=== PATIENT | female | born 1995 | race Caucasian/White ===

== ENCOUNTER 2016-07-08 10:44 | Emergency (ER) | payer OTHER ==
--- NOTE | 2016-07-08 12:13 | ED ORDER SUMMARY ---
..... Patient: KARL DEAL OrderSheet [facility] VisitID: [id number] [address] [place] [address] 20y, F Registration Date/Time: 07/08/2016 ORDER SHEET Weight: 124.7 kg (stated) Allergies: No Known Drug Allergy GENERAL ORDERS: Soft Tissue Neck Urgent (11:09 07/08/2016 Shirlene BARRAGAN) (Ack 11:11 LTapper) (12:14 Erika CardonaNRonit) MEDICATION ORDERS: IV FLUIDS: ORDER SHEET NOTES: [Electronically signed by Jennifer Hennessy R.N. (12:25 07/08/2016)] [Electronically signed by Fernando John MD (13:40 07/08/2016)] [Electronically locked/signed by Jennifer Hennessy R.N. (12:25 07/08/2016)]
--- NOTE | 2016-07-08 12:13 | ED NURSING NOTES ---
Clinical Report - Nurses [facility] [address] [place] [address] 07/08/2016 10:47 Patient: KARL DEAL TRIAGE Triage time 10:54. Acuity: LEVEL 3. Chief Complaint: EAR PAIN, NAUSEA and NECK PAIN. Alert. No acute distress. ANSELMO COMA SCORE: Anselmo Coma Scale: 15- eyes open spontaneously (4); best verbal response- oriented x 4 (5); best motor response- obeys commands (6). --10:59 Jennifer Hennessy R.N. 11:00 07/08/16. BP: 148/91. HR: 101. RR: 18. O2 saturation: 100%. Temp: 98.3 F. Pain level now: 11/01. --11:02 Jennifer Hennessy R.N. Weight: 124.7 kg stated. Height/Length: 66 inches Per Patient. BMI: 44.4. --10:59 Jennifer Hennessy R.N. Medications Abilify Oral. BuPROPion HCl Oral. CeleXA Oral. Citalopram Hydrobromide Oral. LamoTRIgine Oral. [place] Oral. QUEtiapine Fumarate Oral. --10:57 Jennifer Hennessy R.N. Medication/allergy information source: the patient. --10:59 Jennifer Hennessy R.N. Allergies No Known Drug Allergy. --10:57 Jennifer Hennessy R.N. History Arrived by private vehicle. Historian: patient. Unaccompanied. Primary physician (Bruno). Onset. (about 4 days). She has had a sore throat. PAST MEDICAL HX: Last normal menstrual period- June 2016. SOCIAL HX: Smoker- current status unknown (no). Occasional alcohol use. History of drug use: marijuana. FALL RISK ASSESSMENT: Fall risk assessment completed. No fall risk identified. FUNCTIONAL ASSESSMENT: Functional assessment: no impairments noted. LEARNING NEEDS ASSESSMENT: The learning needs assessment revealed no barriers. --10:59 Gerhard, Jennifer, R.N. PROBLEMS: Bipolar Disorder. Anxiety Reaction. Suicidal Ideation. Depression. --10:58 Jennifer Hennessy R.N. ADDITIONAL SURGERIES: Adenoidectomy. Tonsillectomy. Tympanostomy Tubes. --10:58 Jennifer Hennessy R.N. Assessment GENERAL / NEURO / PSYCH: Alert. Oriented X 4. Appears in no acute distress. Patient appears calm and cooperative. RESPIRATORY: Respirations not labored. SKIN: Skin is warm and dry. --10:59 Jennifer Hennessy R.N. Interventions ID band on patient. To treatment room. --10:59 Jennifer Hennessy R.N. PHYSICAL ASSESSMENT 11:04 07/08/16. Ambulatory to room. GENERAL / NEURO / PSYCH: Alert. Oriented X 4. Appears in no acute distress. RESPIRATORY: Respirations not labored. SKIN: Skin is warm and dry. --11:04 Jennifer Hennessy R.N. NURSING PROGRESS NOTES 11:04 07/08/16. Head of bed elevated. Call light placed in reach. Side rails up x 1. Bed placed in lowest position. Brakes of bed on. --11:04 Jennifer Hennessy R.N. 12:15. Overall patient status is the same- she states feels the same. RESPIRATORY: No respiratory distress. SKIN: Skin is warm and dry. --12:25 Jennifer Hennessy R.N. DISPOSITION / DISCHARGE Departure time: 1215. Condition at departure: stable. No learning barriers present. Reviewed medication(s). Prescription(s) given to the patient. Patient verbalized understanding. Written instructions provided in Indonesian. The patient was discharged home and unaccompanied at time of discharge. She left the Emergency Department via private vehicle. FALL RISK ASSESSMENT: Fall risk assessment completed. No fall risk identified. --12:24 Jennifer Hennessy R.N. 12:15 07/08/16. BP: 137/86. HR: 98. RR: 18. O2 saturation: 100% on room air. Pain level now: 01/02. --12:24 Jennifer Hennessy R.N. Locked/Released at 07/08/2016 12:25 by Jennifer Hennessy R.N.
--- NOTE | 2016-07-08 12:13 | ED NURSING NOTES ---
Clinical Report - Nurses [facility] [address] [place] [address] 07/08/2016 10:47 Patient: KARL DEAL TRIAGE Triage time 10:54. Acuity: LEVEL 3. Chief Complaint: EAR PAIN, NAUSEA and NECK PAIN. Alert. No acute distress. ANSELMO COMA SCORE: Anselmo Coma Scale: 15- eyes open spontaneously (4); best verbal response- oriented x 4 (5); best motor response- obeys commands (6). --10:59 Jennifer Hennessy R.N. 11:00 07/08/16. BP: 148/91. HR: 101. RR: 18. O2 saturation: 100%. Temp: 98.3 F. Pain level now: 11/01. --11:02 Jennifer Hennessy R.N. Weight: 124.7 kg stated. Height/Length: 66 inches Per Patient. BMI: 44.4. --10:59 Jennifer Hennessy R.N. Medications Abilify Oral. BuPROPion HCl Oral. CeleXA Oral. Citalopram Hydrobromide Oral. LamoTRIgine Oral. [place] Oral. QUEtiapine Fumarate Oral. --10:57 Jennifer Hennessy R.N. Medication/allergy information source: the patient. --10:59 Jennifer Hennessy R.N. Allergies No Known Drug Allergy. --10:57 Jennifer Hennessy R.N. History Arrived by private vehicle. Historian: patient. Unaccompanied. Primary physician (Bruno). Onset. (about 4 days). She has had a sore throat. PAST MEDICAL HX: Last normal menstrual period- June 2016. SOCIAL HX: Smoker- current status unknown (no). Occasional alcohol use. History of drug use: marijuana. FALL RISK ASSESSMENT: Fall risk assessment completed. No fall risk identified. FUNCTIONAL ASSESSMENT: Functional assessment: no impairments noted. LEARNING NEEDS ASSESSMENT: The learning needs assessment revealed no barriers. --10:59 Gerhard, Jennifer, R.N. PROBLEMS: Bipolar Disorder. Anxiety Reaction. Suicidal Ideation. Depression. --10:58 Jennifer Hennessy R.N. ADDITIONAL SURGERIES: Adenoidectomy. Tonsillectomy. Tympanostomy Tubes. --10:58 Jennifer Hennessy R.N. Assessment GENERAL / NEURO / PSYCH: Alert. Oriented X 4. Appears in no acute distress. Patient appears calm and cooperative. RESPIRATORY: Respirations not labored. SKIN: Skin is warm and dry. --10:59 Jennifer Hennessy R.N. Interventions ID band on patient. To treatment room. --10:59 Jennifer Hennessy R.N. PHYSICAL ASSESSMENT 11:04 07/08/16. Ambulatory to room. GENERAL / NEURO / PSYCH: Alert. Oriented X 4. Appears in no acute distress. RESPIRATORY: Respirations not labored. SKIN: Skin is warm and dry. --11:04 Jennifer Hennessy R.N. NURSING PROGRESS NOTES 11:04 07/08/16. Head of bed elevated. Call light placed in reach. Side rails up x 1. Bed placed in lowest position. Brakes of bed on. --11:04 Jennifer Hennessy R.N. 12:15. Overall patient status is the same- she states feels the same. RESPIRATORY: No respiratory distress. SKIN: Skin is warm and dry. --12:25 Jennifer Hennessy R.N. DISPOSITION / DISCHARGE Departure time: 1215. Condition at departure: stable. No learning barriers present. Reviewed medication(s). Prescription(s) given to the patient. Patient verbalized understanding. Written instructions provided in Welsh. The patient was discharged home and unaccompanied at time of discharge. She left the Emergency Department via private vehicle. FALL RISK ASSESSMENT: Fall risk assessment completed. No fall risk identified. --12:24 Jennifer Hennessy R.N. 12:15 07/08/16. BP: 137/86. HR: 98. RR: 18. O2 saturation: 100% on room air. Pain level now: 01/02. --12:24 Jennifer Hennessy R.N. Locked/Released at 07/08/2016 12:25 by Jennifer Hennessy R.N.
--- NOTE | 2016-07-08 12:13 | ED CLINICAL REPORT ---
Clinical Report - Physicians/Mid Levels [facility] [address] [place] [address] 07/08/2016 10:47 Patient: KARL DEAL Time Seen: 10:52 Jul 08 2016. Arrived- By private vehicle. Historian- patient. CPT: ER phys charges level 3 (#205328). HISTORY OF PRESENT ILLNESS Chief Complaint: NECK PAIN. It is described as being in the area of the cervical spine. The quality is noted to be aching and "pain". 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 She has had a sore throat. and it is still present. No bladder dysfunction, bowel dysfunction, sensory loss or motor loss. Patient denies an injury. No other injury. Similar symptoms previously: None. Evaluation/treatment- strep and mono spot negative. Recent medical care: The patient was seen recently at another facility in a clinic (yesterday). Diagnosis: (Viral URI). REVIEW OF SYSTEMS The patient has had fever and a sore throat. No chills, eye discomfort, headache, depression or cough. No difficulty breathing, chest pain, skin rash, abdominal pain or nausea. No vomiting, diarrhea, black stools, difficulty with urination or urinary frequency. All systems otherwise negative, except as recorded above. PAST HISTORY Bipolar Disorder. Anxiety Reaction. Suicidal Ideation. Depression. ADDITIONAL SURGERIES: Adenoidectomy. Tonsillectomy. Tympanostomy Tubes. Medications: Abilify Oral. BuPROPion HCl Oral. CeleXA Oral. Citalopram Hydrobromide Oral. LamoTRIgine Oral. [place] Oral. QUEtiapine Fumarate Oral. Allergies: No Known Drug Allergy. SOCIAL HISTORY Never smoker. Alcohol use. History of drug use: marijuana. ADDITIONAL NOTES The nursing notes have been reviewed. PHYSICAL EXAM Vital Signs: 07/08/2016 11:00 BP: 148/91. HR: 101. RR: 18. O2 saturation: 100%. Temp: 98.3 F. Pain level now: 7/10. Appearance: Alert. No acute distress. Anxious. HEENT: Normal external inspection. Eyes: Pupils equal, round and reactive to light. ENT: Ears normal. Pharyngeal erythema. No tonsillar exudate. Neck: Normal inspection. Neck nontender. No decreased ROM in the neck. Painless ROM. Mild soft tissue tenderness in the right lower neck area and left lower neck area. No lymphadenopathy or meningeal signs. CVS: Normal heart rate and rhythm. Heart sounds normal. Pulses normal. Respiratory: No respiratory distress. Breath sounds normal. Chest nontender. Abdomen: Normal inspection. Soft and nontender. Back: Normal inspection. No tenderness. Painless ROM. Skin: Skin warm. Normal skin color. No rash. Extremities: Extremities nontender. Neuro: Oriented X 3. Mood/affect normal. No motor deficit. No sensory deficit. Reflexes normal. LABS, X-RAYS, AND EKG X-Rays: Soft tissue neck negative. PROGRESS AND PROCEDURES Patient/family counseled. Disposition: Discharged. Condition: stable. CLINICAL IMPRESSION Acute streptococcal pharyngitis (progressive). INSTRUCTIONS Warnings: GENERAL WARNINGS: Return or contact your physician immediately if your condition worsens or changes unexpectedly, if not improving as expected, or if other problems arise. Your Current Medications: CONTINUE TAKING THE FOLLOWING MEDICATIONS: Abilify Oral. BuPROPion HCl Oral. CeleXA Oral. Citalopram Hydrobromide Oral. LamoTRIgine Oral. [place] Oral. QUEtiapine Fumarate Oral. Prescription Medications: Hydrocodone / APAP Liquid 7.5mg/325mg/15 mL: take ten (10) mL orally every 6 hours as needed for pain. Dispense one hundred (100) mL. No refill. Amoxicillin 500 mg tablets: Take 1 orally every 8 hours for 7 days. Dispense twenty-one (21). No refills. Follow-up: Return to the emergency department If worse. Follow up with your doctor in two days if not better. Understanding of the discharge instructions verbalized by patient. (Electronically signed by Fernando John MD 07/08/2016 13:40)
--- NOTE | 2016-07-08 12:13 | ED CLINICAL REPORT ---
Clinical Report - Physicians/Mid Levels [facility] [address] [place] [address] 07/08/2016 10:47 Patient: KARL DEAL Time Seen: 10:52 Jul 08 2016. Arrived- By private vehicle. Historian- patient. CPT: ER phys charges level 3 (#104352). HISTORY OF PRESENT ILLNESS Chief Complaint: NECK PAIN. It is described as being in the area of the cervical spine. The quality is noted to be aching and "pain". 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 She has had a sore throat. and it is still present. No bladder dysfunction, bowel dysfunction, sensory loss or motor loss. Patient denies an injury. No other injury. Similar symptoms previously: None. Evaluation/treatment- strep and mono spot negative. Recent medical care: The patient was seen recently at another facility in a clinic (yesterday). Diagnosis: (Viral URI). REVIEW OF SYSTEMS The patient has had fever and a sore throat. No chills, eye discomfort, headache, depression or cough. No difficulty breathing, chest pain, skin rash, abdominal pain or nausea. No vomiting, diarrhea, black stools, difficulty with urination or urinary frequency. All systems otherwise negative, except as recorded above. PAST HISTORY Bipolar Disorder. Anxiety Reaction. Suicidal Ideation. Depression. ADDITIONAL SURGERIES: Adenoidectomy. Tonsillectomy. Tympanostomy Tubes. Medications: Abilify Oral. BuPROPion HCl Oral. CeleXA Oral. Citalopram Hydrobromide Oral. LamoTRIgine Oral. [place] Oral. QUEtiapine Fumarate Oral. Allergies: No Known Drug Allergy. SOCIAL HISTORY Never smoker. Alcohol use. History of drug use: marijuana. ADDITIONAL NOTES The nursing notes have been reviewed. PHYSICAL EXAM Vital Signs: 07/08/2016 11:00 BP: 148/91. HR: 101. RR: 18. O2 saturation: 100%. Temp: 98.3 F. Pain level now: 7/10. Appearance: Alert. No acute distress. Anxious. HEENT: Normal external inspection. Eyes: Pupils equal, round and reactive to light. ENT: Ears normal. Pharyngeal erythema. No tonsillar exudate. Neck: Normal inspection. Neck nontender. No decreased ROM in the neck. Painless ROM. Mild soft tissue tenderness in the right lower neck area and left lower neck area. No lymphadenopathy or meningeal signs. CVS: Normal heart rate and rhythm. Heart sounds normal. Pulses normal. Respiratory: No respiratory distress. Breath sounds normal. Chest nontender. Abdomen: Normal inspection. Soft and nontender. Back: Normal inspection. No tenderness. Painless ROM. Skin: Skin warm. Normal skin color. No rash. Extremities: Extremities nontender. Neuro: Oriented X 3. Mood/affect normal. No motor deficit. No sensory deficit. Reflexes normal. LABS, X-RAYS, AND EKG X-Rays: Soft tissue neck negative. PROGRESS AND PROCEDURES Patient/family counseled. Disposition: Discharged. Condition: stable. CLINICAL IMPRESSION Acute streptococcal pharyngitis (progressive). INSTRUCTIONS Warnings: GENERAL WARNINGS: Return or contact your physician immediately if your condition worsens or changes unexpectedly, if not improving as expected, or if other problems arise. Your Current Medications: CONTINUE TAKING THE FOLLOWING MEDICATIONS: Abilify Oral. BuPROPion HCl Oral. CeleXA Oral. Citalopram Hydrobromide Oral. LamoTRIgine Oral. [place] Oral. QUEtiapine Fumarate Oral. Prescription Medications: Hydrocodone / APAP Liquid 7.5mg/325mg/15 mL: take ten (10) mL orally every 6 hours as needed for pain. Dispense one hundred (100) mL. No refill. Amoxicillin 500 mg tablets: Take 1 orally every 8 hours for 7 days. Dispense twenty-one (21). No refills. Follow-up: Return to the emergency department If worse. Follow up with your doctor in two days if not better. Understanding of the discharge instructions verbalized by patient. (Electronically signed by Fernando John MD 07/08/2016 13:40)
--- NOTE | 2016-07-08 12:13 | ED ORDER SUMMARY ---
..... Patient: KARL DEAL OrderSheet [facility] VisitID: [id number] [address] [place] [address] 20y, F Registration Date/Time: 07/08/2016 ORDER SHEET Weight: 124.7 kg (stated) Allergies: No Known Drug Allergy GENERAL ORDERS: Soft Tissue Neck Urgent (11:09 07/08/2016 Shirlene BARRAGAN) (Ack 11:11 LTapper) (12:14 Erika CardonaNRonit) MEDICATION ORDERS: IV FLUIDS: ORDER SHEET NOTES: [Electronically signed by Jennifer Hennessy R.N. (12:25 07/08/2016)] [Electronically signed by Fernando John MD (13:40 07/08/2016)] [Electronically locked/signed by Jennifer Hennessy R.N. (12:25 07/08/2016)]
--- NOTE | 2016-07-08 13:40 | ED MAR SUMMARY ---
..... Medication Administration Record [facility] [address] [place] [id number] Patient: KARL DEAL Visit ID: [id number] 20y, F Weight: 124.7 kg Height/Length: 66 in BMI: 44.4 ALLERGIES: No Known Drug Allergy
--- NOTE | 2016-07-08 13:40 | ED MED RECONCILIATION SUMMARY ---
Patient: KARL DEAL Medication Reconciliation Report [facility] VisitID: [id number] [address] [place] [address] 20y, F Registration Date/Time: 07/08/2016 Weight: 124.7 kg Height/Length: 66 in. BMI: 44.4 ALLERGIES: No Known Drug Allergy The patient's Home Medications are listed below: CONTINUE TAKING THE FOLLOWING MEDICATIONS: Abilify Oral BuPROPion HCl Oral CeleXA Oral Citalopram Hydrobromide Oral LamoTRIgine Oral [place] Oral QUEtiapine Fumarate Oral The source(s) of the original Home Medication information: patient The following Medications were given to the patient in the Emergency Department: None. The following Medications were prescribed to the patient: Hydrocodone / APAP Liquid 7.5mg/325mg/15 mL: take ten (10) mL orally every 6 hours as needed for pain. Dispense one hundred (100) mL. No refill. -- Fernando John MD Amoxicillin 500 mg tablets: Take 1 orally every 8 hours for 7 days. Dispense twenty-one (21). No refills. -- Fernando John MD
--- NOTE | 2016-07-08 13:40 | ED MAR SUMMARY ---
..... Medication Administration Record [facility] [address] [place], [place] [id number] Patient: KARL DEAL Visit ID: [id number] 20y, F Weight: 124.7 kg Height/Length: 66 in BMI: 44.4 ALLERGIES: No Known Drug Allergy
--- NOTE | 2016-07-08 13:40 | ED DISCHARGE INSTRUCTIONS ---
Patient: KARL DEAL General Instructions [facility] VisitID: [id number] [place] [address] 20y, F Registration Date/Time: 07/08/2016 Acute streptococcal pharyngitis (progressive). INSTRUCTIONS Warnings: GENERAL WARNINGS: Return or contact your physician immediately if your condition worsens or changes unexpectedly, if not improving as expected, or if other problems arise. Your Current Medications: CONTINUE TAKING THE FOLLOWING MEDICATIONS: Abilify Oral. BuPROPion HCl Oral. CeleXA Oral. Citalopram Hydrobromide Oral. LamoTRIgine Oral. [place] Oral. QUEtiapine Fumarate Oral. Prescription Medications: Hydrocodone / APAP Liquid 7.5mg/325mg/15 mL: take ten (10) mL orally every 6 hours as needed for pain. Dispense one hundred (100) mL. No refill. Amoxicillin 500 mg tablets: Take 1 orally every 8 hours for 7 days. Dispense twenty-one (21). No refills. Follow-up: Return to the emergency department If worse. Follow up with your doctor in two days if not better. Understanding of the discharge instructions verbalized by patient. ADDITIONAL INFORMATION Pharyngitis: Strep [Presumed] Your illness has the signs of a strep throat infection. Strep throat is a contagious illness. It is spread by coughing, kissing or by touching others after touching your mouth or nose. Symptoms include throat pain worse with swallowing, aching all over, headache and fever. You will be treated with an antibiotic, which should make you start to feel better within 1-2 days. Home Care: Rest at home and drink plenty of fluids to avoid dehydration. No school or work for the first two days on antibiotics. You will not be contagious after this time, and if you are feeling better, you can return to school or work. Take your antibiotics for a full 10 days, even if you feel better after the first few days of treatment. This is very important to prevent complications from the strep infection (such as heart or kidney disease). Children: Use acetaminophen (Tylenol) for fever, fussiness or discomfort. In infants over six months of age, you may use ibuprofen (Children's Motrin) instead of Tylenol. [NOTE: If your child has chronic liver or kidney disease or ever had a stomach ulcer or GI bleeding, talk with your doctor before using these medicines.] (Aspirin should never be used in anyone under 18 years of age who is ill with a fever. It may cause severe liver damage.) Adults: You may use acetaminophen (Tylenol) or ibuprofen (Motrin, Advil) to control pain or fever, unless another medicine was prescribed for this. [NOTE: If you have chronic liver or kidney disease or ever had a stomach ulcer or GI bleeding, talk with your doctor before using these medicines.] Throat lozenges or sprays (Chloraseptic and others) will reduce pain. Gargling with warm salt water will also reduce throat pain. Dissolve 1/2 teaspoon of salt in 1 glass of warm water. This is especially useful just before meals. Follow Up with your doctor or as directed by our staff if you are not improving over the next week. Get Prompt Medical Attention if any of the following occur: Fever over 100.5F (38.0C) oral, or over 101.5F (38.6C) rectal for more than three days New or worsening ear pain, sinus pain or headache Painful lumps in the back of your neck Unable to swallow liquids or open your mouth wide due to throat pain Trouble breathing or noisy breathing Muffled voice New rash Hydrocodone Bitartrate, Acetaminophen Oral solution What is this medicine? ACETAMINOPHEN; HYDROCODONE (a set a NANCY rosalia fen; med droe KOE done) is a pain reliever. It is used to treat mild to moderate pain. How should I use this medicine? Take this medicine by mouth. Use a specially marked spoon or dropper to measure your dose. Ask your pharmacist if you do not have a dropper or measuring spoon. Do not use a household spoon. Follow the directions on the prescription label. If the medicine upsets your stomach, take it with food or milk. Do not take more medicine than you are told to take. Talk to your cyber engineer regarding the use of this medicine in children. This medicine is not approved for use in children. What side effects may I notice from receiving this medicine? Side effects that you should report to your doctor or health director of health care marketing as soon as possible: allergic reactions like skin rash, itching or hives, swelling of the face, lips, or tongue breathing problems confusion feeling faint or lightheaded, falls stomach pain yellowing of the eyes or skin Side effects that usually do not require medical attention (report to your doctor or health director of health care marketing if they continue or are bothersome): nausea, vomiting stomach upset What may interact with this medicine? alcohol antihistamines isoniazid medicines for depression, anxiety, or psychotic disturbances medicines for sleep muscle relaxants naltrexone narcotic medicines (opiates) for pain phenobarbital ritonavir tramadol What if I miss a dose? If you miss a dose, take it as soon as you can. If it is almost time for your next dose, take only that dose. Do not take double or extra doses. Where should I keep my medicine? Keep out of the reach of children. This medicine can be abused. Keep your medicine in a safe place to protect it from theft. Do not share this medicine with anyone. Selling or giving away this medicine is dangerous and against the law. Store at room temperature between 20 and 25 degrees C (68 and 77 degrees F). Protect from light. Keep container tightly closed. Throw away any unused medicine after the expiration date. Discard unused medicine and used packaging carefully. Pets and children can be harmed if they find used or lost packages. What should I tell my health care provider before I take this medicine? They need to know if you have any of these conditions: brain tumor Crohn's disease, inflammatory bowel disease, or ulcerative colitis drink more than 3 alcohol-containing drinks per day drug abuse or addiction head injury heart or circulation problems kidney disease or problems going to the bathroom liver disease lung disease, asthma, or breathing problems an unusual or allergic reaction to acetaminophen, hydrocodone, other opioid analgesics, other medicines, foods, dyes, or preservatives or trying to get breast-feeding What should I watch for while using this medicine? Tell your doctor or health director of health care marketing if your pain does not go away, if it gets worse, or if you have new or a different type of pain. You may develop tolerance to the medicine. Tolerance means that you will need a higher dose of the medicine for pain relief. Tolerance is normal and is expected if you take this medicine for a long time. Do not suddenly stop taking your medicine because you may develop a severe reaction. Your body becomes used to the medicine. This does NOT mean you are addicted. Addiction is a behavior related to getting and using a drug for a non-medical reason. If you have pain, you have a medical reason to take pain medicine. Your doctor will tell you how much medicine to take. If your doctor wants you to stop the medicine, the dose will be slowly lowered over time to avoid any side effects. You may get drowsy or dizzy when you first start taking the medicine or change doses. Do not drive, use machinery, or do anything that may be dangerous until you know how the medicine affects you. Stand or sit up slowly. There are different types of narcotic medicines (opiates) for pain. If you take more than one type at the same time, you may have more side effects. Give your health care provider a list of all medicines you use. Your doctor will tell you how much medicine to take. Do not take more medicine than directed. Call emergency for help if you have problems breathing. The medicine will cause constipation. Try to have a bowel movement at least every 2 to 3 days. If you do not have a bowel movement for 3 days, call your doctor or health director of health care marketing. Too much acetaminophen can be very dangerous. Do not take Tylenol (acetaminophen) or medicines that contain acetaminophen with this medicine. Many non-prescription medicines contain acetaminophen. Always read the labels carefully. You have been given the following additional information: Pharyngitis, Strep (Presumed) Hydrocodone Bitartrate, Acetaminophen Oral solution (Electronically signed by Fernando John MD 07/08/2016 13:40)
--- NOTE | 2016-07-08 13:40 | ED MED RECONCILIATION SUMMARY ---
Patient: KARL DEAL Medication Reconciliation Report [facility] VisitID: [id number] [address] [place] [address] 20y, F Registration Date/Time: 07/08/2016 Weight: 124.7 kg Height/Length: 66 in. BMI: 44.4 ALLERGIES: No Known Drug Allergy The patient's Home Medications are listed below: CONTINUE TAKING THE FOLLOWING MEDICATIONS: Abilify Oral BuPROPion HCl Oral CeleXA Oral Citalopram Hydrobromide Oral LamoTRIgine Oral [place] Oral QUEtiapine Fumarate Oral The source(s) of the original Home Medication information: patient The following Medications were given to the patient in the Emergency Department: None. The following Medications were prescribed to the patient: Hydrocodone / APAP Liquid 7.5mg/325mg/15 mL: take ten (10) mL orally every 6 hours as needed for pain. Dispense one hundred (100) mL. No refill. -- Fernando John MD Amoxicillin 500 mg tablets: Take 1 orally every 8 hours for 7 days. Dispense twenty-one (21). No refills. -- Fernando John MD
--- NOTE | 2016-07-08 13:47 | DIAGNOSTIC IMAGING REPORT ---
PROCEDURE: XR SOFT TISSUE NECK INDICATION: DIFFICULTY SWALLOWING TECHNIQUE: AP and lateral views. COMPARISON: None. FINDINGS: Subglottic edema with mild prevertebral soft tissue swelling and enlarged adenoids. Normal epiglottis. No evidence of retropharyngeal air. Bones are unremarkable. IMPRESSION: 1. Subglottic edema, prevertebral soft-tissue swelling and enlarged adenoids. This may represent inflammatory or allergic changes. 2. Results discussed with Dr. John
== END 2016-07-08 12:15 | disposition home or self-care (01) ==
LOC: ED SRH 10:44
DX: J02.0 Streptococcal pharyngitis (principal); Z79.899 Other long term (current) drug therapy

== ENCOUNTER 2016-07-09 01:46 | Emergency (ER) | payer OTHER ==
--- NOTE | 2016-07-09 06:07 | ED CLINICAL REPORT ---
Clinical Report - Physicians/Mid Levels [facility] [address] [place] [address] 07/09/2016 1:45 Patient: KARL DEAL Time Seen: 0240. Arrived- By private vehicle. Historian- patient. HISTORY OF PRESENT ILLNESS Chief Complaint: SORE THROAT. This started past 3 days and is still present and worsening. It was gradual in onset and has been constant but is not gone now. Pain described as severe. The patient has had a sore throat, nasal congestion and a nasal discharge. (no fever. reports it has gotten worse over the past 2 days. states she had a negative rapid strep and mono test done at an outside facility.). Similar symptoms previously: None. Recent medical care: The patient was seen recently in the emergency department (had plain films of the neck and told to come back to the ED.). REVIEW OF SYSTEMS No fever, difficulty breathing, chest pain, nausea or vomiting. All systems otherwise negative, except as recorded above. PAST HISTORY See nurses notes. Medications: Abilify Oral. BuPROPion HCl Oral. CeleXA Oral. Citalopram Hydrobromide Oral. LamoTRIgine Oral. [address] Oral. QUEtiapine Fumarate Oral. Allergies: No Known Drug Allergy. SOCIAL HISTORY Never smoker. No alcohol use or drug use. No recent travel. Is a local resident. ADDITIONAL NOTES The nursing notes have been reviewed. PHYSICAL EXAM Vital Signs: 07/09/2016 01:50 BP: 139/73. HR: 93. RR: 22. O2 saturation: 99%. Temp: 98 F. Pain level now: 7/10. Blood pressure normal. Oxygen saturation normal. Appearance: Alert. Patient in mild distress. Head: Normal external inspection. Eyes: Pupils equal, round and reactive to light. Conjunctivae and eyelids normal. ENT: Moderate trismus present (2.5 finger breaths). Ears normal. Nose normal. Pharynx abnormal. Moderate generalized pharyngeal erythema. No right tonsillar exudate or left tonsillar exudate. Lips normal. Gums normal. Uvula midline. Neck: Trachea midline. No adenopathy. No lymphadenopathy, thyromegaly or meningeal signs. CVS: Normal heart rate and rhythm. Heart sounds normal. Pulses normal. Respiratory: No respiratory distress. Breath sounds normal. Chest nontender. Abdomen: Soft and nontender. No organomegaly. Skin: Normal skin color. No rash. Normal skin turgor. Extremities: Extremities exhibit normal ROM. Extremities nontender. LABS, X-RAYS, AND EKG CT Neck - Soft Tissue: (PROCEDURE: CT SOFT TISSUE NECK WITH CONT INDICATION: PAIN, PREVERTEBRAL SOFT TISSUE SWELLING ON PLAIN FILM TECHNIQUE: 100 ml of Isovue 300 injected intravenously and axial images were obtained from the skull base through the upper mediastinum with sagittal and coronal reformations. In addition, angled axial oblique images were obtained (avoiding dental hardware). COMPARISON: Soft tissue neck x-ray 07/08/2016. FINDINGS: 3 x 1.3 cm left peritonsillar heterogeneous mass causing distortion of the airway with a focal 1.5 x 1.1 cm low-density area consistent with an abscess. There is loss of retropharyngeal tissue planes with fluid density consistent with a retropharyngeal abscess from C1-C6. Markedly enlarged adenoids. Bilateral jugular adenopathy most prominent on the left (1.5 cm short axis). Normal epiglottis. The parotid, submandibular and thyroid glands are normal. Lung apices are clear. Visualized mastoids and sinuses are clear. IMPRESSION: 1. 3 x 1.3 cm left peritonsillar phlegmon with a 1.5 x 1.1 cm abscess. There is fluid density from C1-C6 consistent with a retropharyngeal abscess 2. Bilateral cervical adenopathy, left greater than right 3. Normal epiglottis). Neck CT (soft tissue) performed with contrast. The study was independently viewed by me and interpreted by the radiologist. The study was discussed with the radiologist (via phone and fax). A comparison with prior studies was made (consistent with soft tissue swelling on plain films). Laboratory Tests: CBC w Diff: (TIFFANIE: 07/09/2016 03:50) ( MsgRcvd 07/09/2016 04:04) Final results Test Result Flag Units (Reference) WHITE BLOOD COUNT 17.1 H K/uL (4.5-11.5) RED BLOOD COUNT 4.49 M/uL (4.00-5.20) HEMOGLOBIN 11.2 L gm/dL (12.0-16.0) HEMATOCRIT 34.7 L % (36.0-46.0) MEAN CELL VOLUME 77 L fL (80-100) MEAN CORPUSCULAR HGB 25 L pg (26-34) MEAN CORPUSCULAR HGB CONC 32 g/dL (31-37) RED CELL DISTRIBUTION WIDTH 16.6 H % (11.6-14.8) PLATELET COUNT 319 K/uL (150-400) NEUTROPHIL % 76.1 H % (50-75) LYMPH % 14.2 L % (25-40) MONO % 8.9 % (3-14) EOSINOPHIL % 0.5 % (0-4) BASOPHIL % 0.3 % (0-2) CMP: (TIFFANIE: 07/09/2016 03:50) ( MsgRcvd 07/09/2016 04:26) Final results Test Result Flag Units (Reference) GLUCOSE 127 H mg/dL (70-110) BUN 3 L mg/dL (7-18) CREATININE 0.9 mg/dL (0.6-1.3) Estimated GFR >60 mL/min Estimated GFR- >60 mL/min Note: Persistent reduction over 3 months in eGFR<60 mL/min/1.73 m2 defines CKD. Patients with eGFR values>=60 mL/min/1.73 m2 may also have CKD if evidence ofpersistent proteinuria. Additional information may be foundat [email or web address].org. SODIUM 138 mmol/L (136-145) POTASSIUM 3.1 L mmol/L (3.5-5.1) CHLORIDE 100 mmol/L (98-107) CARBON DIOXIDE 27 mmol/L (21-32) CALCIUM 8.8 mg/dL (8.5-10.1) TOTAL PROTEIN 7.8 g/dL (6.4-8.2) ALBUMIN 3.1 L g/dL (3.3-5.0) BILIRUBIN, TOTAL 0.5 mg/dL (0.0-1.0) ALKALINE PHOSPHATASE 87 U/L (46-116) AST (SGOT) 10 L U/L (15-37) ALT (SGPT) 17 U/L (12-78) C-REACTIVE PROTEIN 12.2 H mg/dL (0.0-0.9) . PROGRESS AND PROCEDURES Course of Care: he patient is a pleasant 20-year-old female presenting for evaluation of neck pain. The patient was here previously for neck pain and had a lateral film of the neck performed. On sign out, the patient had soft tissue swelling of the anterior vertebral Area. Concern for peritonsillar abscess or retropharyngeal abscess noted. Patient does not have any signs of acute airway compromise or worsening signs of airway edema. Patient is agreeable to treatment and plan with laboratory studies and CT scan with contrast for better visualization of suspected infectious etiology. Pain medication as been ordered. Workup is remarkable for a peritonsillar abscess on the left. Called radiology in regards to clarification of the CT scan. Patient with retropharyngeal abscess and left peritonsillar abscess. Consultative ear nose and throat for evaluation and disposition for the patient and appropriate antibiotic therapy. Recommended 20 mg of Decadron and IV Unasyn. The doctor who initially consult was Dr. Richardson. Stated the patient can follow-up in the clinic as long as she continues to be stable and have a low threshold for return to the hospital. At this point in time, patient was given the medications and was reevaluated. Patient did not have significant improvement in her symptoms. Do not feel comfortable with discharging the patient home. Spoke to the on-call hospitalist who states that year nose and throat doctor would needs to be able to evaluate the patient before 12:00 this afternoon otherwise it would be dangerous to have the patient admitted here in the hospital. Reconsult the ear nose and throat however unfortunately they were unable to consult on the patient as they state the patient could deteriorate rapidly given the retropharyngeal abscess and would need to be transferred to [facility] and have ear nose and throat consulteddown at the other facility. This doctor that had consulted was Dr. Gómez. I spoke to the ear nose and throat doctor at [facility] who states that they will see the patient. Patient is to be transferred emergency Department emergency department. Patient was reevaluated and found to be slightly better however patient still with trismus. Patient is not a stable outpatient candidate. Feel the patient needs be admitted to the hospital for monitoring and IV antibiotics. Patient is a high risk for acute decompensation. Discussed cased with the patient as well as the patient's mother. Initially, the plan was to admit the patient here in the hospital however needed to update mother in regards to the reason why patient was transferred to [facility]. Informed written consent was obtained. An patient was transferred. 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 An additional dose of antibiotics have been ordered because of the potential delay and traffic concerns. Patient is stable for ALS transport and does not need to be transported via air. Discussed with patient her workup, diagnosis, plan of care. All questions have been answered. The patient is agreeable to the treatment and plan. Prior to patient's departure from the emergency department, she continued to have no signs of airway compromise. Patient continues to be nontoxic however still in a mild amount of distress. No drooling noted. No stridor. Patient is stable for transport. Critical care performed (65 minutes). Time is exclusive of separately billable procedures. Time includes: direct patient care, patient reassessment, coordination of patient care, interpretation of data (laboratory data), review of patient's medical records, medical consultation, family consultation regarding treatment decisions and documentation of patient care. Consult obtained from ENT. Disposition: Benefits, risks and alternatives to transfer explained to patient and family. Transferred to [facility]. CLINICAL IMPRESSION retropharengyl abscess, acute acute left peritonsilar abscess leukocytosis, acute. (Electronically signed by Davian Mason Dr. 07/11/2016 10:08)
--- NOTE | 2016-07-09 06:07 | ED ORDER SUMMARY ---
..... Patient: KARL DEAL OrderSheet [facility] VisitID: [id number] [place] [address] 20y, F Registration Date/Time: 07/09/2016 ORDER SHEET Weight: 124.7 kg (stated) Allergies: No Known Drug Allergy GENERAL ORDERS: CT Soft Tissue Neck w Cont (No) (N/A) Urgent (03:10 07/09/2016 Celina Olivier) (Ack 3:25 ALawrence ER Tech1) (4:18 GUnger) CBC w Diff Urgent (03:11 07/09/2016 Celina Olivier) (3:18 DDavis R.N.) CMP Urgent (03:11 07/09/2016 Celina Olivier) (3:18 DDavis R.N.) CRP Urgent (03:11 07/09/2016 Celina Olivier) (3:18 DDavis R.N.) MEDICATION ORDERS: Unasyn IV 3 gm/100mL (NOW) (04:59 07/09/2016 Celina Olivier) (Ack 5:13 DDavis R.N.) (5:42 DDavis R.N.) Unasyn IV 3 gm/100mL (start just prior to transfer) (08:24 07/09/2016 Celina Olivier) (9:07 LWhalen R.N.) IV FLUIDS: Morphine IV 4 mg (HIGH ALERT MEDICATION, NOW) (03:12 07/09/2016 Celina Olivier) (4:16 HSoule) Decadron IV 20 mg (NOW) (04:59 07/09/2016 Celina Olivier) (Ack 5:13 DDavis R.N.) (5:27 TLewis R.N.) IV NS : initial bolus 1000 mL (1000 mL/hr), then none - for X1 (NOW) (04:59 07/09/2016 Celina Olivier) (Ack 5:13 DDavis R.N.) (5:27 TLewis R.N.) Morphine IV 4 mg (HIGH ALERT MEDICATION, NOW) (06:14 07/09/2016 Celina Olivier) (Ack 6:25 HSoule) (6:29 HSoule) ORDER SHEET NOTES: [Electronically signed by Greg Sharma R.N. (:07/09/2016)] [Electronically signed by Davian Mason Dr. (10:08 07/11/2016)] [Electronically locked/signed by Greg Sharma R.N. (:07/09/2016)]
--- NOTE | 2016-07-09 06:07 | ED NURSING NOTES ---
Clinical Report - Nurses [facility] [address] [place] [address] 07/09/2016 1:45 [id number] TRI[facility] Triage time 01:50. Acuity: LEVEL 4. Chief Complaint: (neck pain and sore throat). Alert. SEPSIS SCREEN: Sepsis Screen: negative. Infection suspected/documented. LUIS MANUEL COMA SCORE: [place] Coma Scale: 15- eyes open spontaneously (4); best verbal response- oriented x 4 (5); best motor response- obeys commands (6). --01:57 Jerrod Alfredo R.N. 01:50 07/09/16. BP: 139/73. HR: 93. RR: 22 (regular and unlabored). O2 saturation: 99% on room air. Temp: 98 F (oral). Pain level now: 11/01. --01:57 Jerrod Alfredo R.N. Weight: 124.7 kg stated. Height/Length: 66 inches Per Patient. BMI: 44.4. --01:52 Jerrod Alfredo R.N. Medications Abilify Oral. BuPROPion HCl Oral. CeleXA Oral. Citalopram Hydrobromide Oral. LamoTRIgine Oral. [place] Oral. QUEtiapine Fumarate Oral. --01:51 Jerrod Alfredo R.N. Allergies No Known Drug Allergy. --01:51 Jerrod Alfredo R.N. History Arrived by private vehicle. Historian: patient. Unaccompanied. Onset. (2 - 3 days ago). ( Neck pain and sore throat since 2-3 day ago, seen yesterday for same.). 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 PAST MEDICAL HX: Last normal menstrual period- 6 days ago. SOCIAL HX: Never smoker. History of heavy drug use: marijuana. Recently used drugs yesterday. No alcohol use. ABUSE ASSESSMENT: Abuse assessment: The patient was asked "Do you feel safe in your home?". No report of abuse. SELF HARM ASSESSMENT: A self harm assessment was performed. FALL RISK ASSESSMENT: Fall risk assessment completed. No fall risk identified. NUTRITIONAL RISK ASSESSMENT: The nutritional risk assessment revealed no deficiencies. LEARNING NEEDS ASSESSMENT: The learning needs assessment revealed no barriers. SKIN INTEGRITY ASSESSMENT: Skin integrity risk assessment completed. No skin integrity risk identified. --01:57 Jerrod Alfredo R.N. PROBLEMS: Pharyngitis. Anxiety Reaction. Bipolar Disorder. Suicidal Ideation. Depression. --01:51 Jerrod Alfredo R.N. ADDITIONAL SURGERIES: Adenoidectomy. Tonsillectomy. Tympanostomy Tubes. --01:51 Jerrod Alfredo R.N. Interventions ID band on patient. To treatment room. --01:57 Jerrod Alfredo R.N. PHYSICAL ASSESSMENT ( neck pain increases with movement and position, throat pain increases with swallowing). GENERAL / NEURO / PSYCH: Alert. Oriented X 4. --01:58 Jerrod Alfredo R.N. RESPIRATORY: ( airway patent). --01:59 Jerrod Alfredo R.N. NURSING PROGRESS NOTES Head of bed elevated. Reassurance given. Two patient identifiers checked. Call light placed in reach. Side rails up x 1. Bed placed in lowest position. Brakes of bed on. Patient ready for evaluation- chart flagged. Patient waiting for evaluation. --01:58 Jerrod Alfredo R.N. 03:52 07/09/2016 Site #1 started via IV in the right antecubital space with an 20g angiocath, with aseptic technique and good blood return; one attempt. Blood drawn: rainbow set. Labeled in the presence of the patient and sent to the lab. Saline lock flushed with saline. --03:57 Jerrod Alfredo R.N. 04:16 07/09/2016 Morphine IVP 4 mg given over 1 minute(s) via site #1. Allergies verified, confirmed 5 rights and sedative warning given to the patient. IV patency established. IV site checked: no pain, redness, or swelling. IV flushed thoroughly pre- and post-medication administration. IVP given by RN. --04:16 Cadence Reyes 04:16 07/09/16. BP: 134/65. HR: 90. RR: 20. O2 saturation: 99% on room air. Pain level now: 11/01. --04:16 Eric Cadence Pulse oximeter and NIBP monitor placed on patient. --04:16 Cadence Reyes The patient is calm, resting quietly and sleeping. RESPIRATORY: No respiratory distress. SKIN: Skin is warm and dry. --05:15 Jerrod Alfredo R.N. 05:27 07/09/2016 Decadron IVP 20 mg given over 1 minute(s) via site #1. Allergies verified and confirmed 5 rights. IV patency established. IV site checked: no pain, redness, or swelling. IV flushed thoroughly pre- and post-medication administration. IVP given by RN. --05:27 Duc Rajput R.N. 05:27 07/09/2016 Started bag #1 1000 mL IV Fluids IV NS (Saline); at 1000 mL/hr over 1 hour(s) via site #1 via IV pump. Allergies verified and confirmed 5 rights. IV patency established. IV site checked: no pain, redness, or swelling. IV flushed thoroughly pre- and post-medication administration. --05:27 Duc Rajput R.N. <<STRICKEN ENTRY-- 05:37 07/09/2016 Started 3 gm of Unasyn (Ampicillin-Sulbactam Sodium) IVPB in bag #1 100 mL; at 50 mL/hr over 2 hour(s) via site #1 via IV pump. Allergies verified and confirmed 5 rights. IV patency established. IV site checked: no pain, redness, or swelling. IV flushed thoroughly pre- and post-medication administration. --05:42 Jerrod Alfredo R.N. --END STRIKE>> Correction. --05:43 Jerrod Alfredo R.N. 05:37 07/09/2016 Started 3 gm of Unasyn (Ampicillin-Sulbactam Sodium) IVPB in bag #1 250 mL; at 150 mL/hr over 2 hour(s) via site #1 via IV pump. Allergies verified and confirmed 5 rights. IV patency established. IV site checked: no pain, redness, or swelling. IV flushed thoroughly pre- and post-medication administration. --05:43 Jerrod Alfredo R.N. 06:29 07/09/2016 Morphine IVP 4 mg given over 1 minute(s) via site #1. Allergies verified, confirmed 5 rights and sedative warning given to the patient and patient's polygraph operator. IV patency established. IV site checked: no pain, redness, or swelling. IV flushed thoroughly pre- and post-medication administration. IVP given by RN. --06:29 Cadence Reyes ( Patient clear to have PO food and fluids). --06:32 Cadence Reyes ( Report given to DORITA Garza). --07:08 Jerrod Alfredo R.N. ( spoke with mother of pt and went over POC to transfer to [facility].). --08:02 Greg hSarma R.N. DISPOSITION / DISCHARGE 06:30 07/09/2016 Unasyn IVPB Discontinued: bag #1 infused. Total amount infused: 100 mL. IV patency established. IV site checked: no pain, redness, or swelling. IV flushed thoroughly. --09:07 Greg Sharma R.N. 07:07 07/09/2016 IV Fluids IV NS Discontinued: bag #1 infused. Total amount infused: 1000 mL. IV patency established. IV site checked: no pain, redness, or swelling. IV flushed thoroughly. --09:07 Greg Sharma R.N. 08:56 07/09/2016 Site #[address] upon transfer; patent. Good blood return present. --09:06 Greg Sharma R.N. 08:56 07/09/2016 Started 3 gm of Unasyn (Ampicillin-Sulbactam Sodium) IVPB in bag #1 100 mL; at 300 mL/hr over 1 hour(s) via site #1 via dial-a-flow. Allergies verified and confirmed 5 rights. IV patency established. IV site checked: no pain, redness, or swelling. IV flushed thoroughly pre- and post-medication administration. --09:07 Greg Sharma R.N. 08:58 07/09/2016 Unasyn IVPB Continued: upon transfer at the rate of 300 mL/hr. 100 mL remaining bag #1. IV patency established. IV site checked: no pain, redness, or swelling. IV flushed thoroughly. --09:08 Greg Sharma R.N. Departure time: 09:05 Jul 09 2016. Transferred to [facility]. Summary of care provided to transport team and transfer facility via paper and fax. ( Report given and Antibiotic hung for transport.). --09:08 Greg Sharma R.N. 09:04 07/09/16. BP: 130/68. HR: 88. RR: 20. O2 saturation: 99%. Temp: 98.8 F. Pain level now 08/02. --09:08 Greg Sharma R.N. Locked/Released at 07/09/2016 19:17 by Greg Sharma R.N.
--- NOTE | 2016-07-09 06:07 | ED ORDER SUMMARY ---
..... Patient: KARL DEAL OrderSheet [facility] VisitID: [id number] [place] [address] 20y, F Registration Date/Time: 07/09/2016 ORDER SHEET Weight: 124.7 kg (stated) Allergies: No Known Drug Allergy GENERAL ORDERS: CT Soft Tissue Neck w Cont (No) (N/A) Urgent (03:10 07/09/2016 Celina Olivier) (Ack 3:25 ALawrence ER Tech1) (4:18 GUnger) CBC w Diff Urgent (03:11 07/09/2016 Celina Olivier) (3:18 DDavis R.N.) CMP Urgent (03:11 07/09/2016 Celina Olivier) (3:18 DDavis R.N.) CRP Urgent (03:11 07/09/2016 Celina Olivier) (3:18 DDavis R.N.) MEDICATION ORDERS: Unasyn IV 3 gm/100mL (NOW) (04:59 07/09/2016 Celina Olivier) (Ack 5:13 DDavis R.N.) (5:42 DDavis R.N.) Unasyn IV 3 gm/100mL (start just prior to transfer) (08:24 07/09/2016 Celina Olivier) (9:07 LWhalen R.N.) IV FLUIDS: Morphine IV 4 mg (HIGH ALERT MEDICATION, NOW) (03:12 07/09/2016 Celina Olivier) (4:16 HSoule) Decadron IV 20 mg (NOW) (04:59 07/09/2016 Celina Olivier) (Ack 5:13 DDavis R.N.) (5:27 TLewis R.N.) IV NS : initial bolus 1000 mL (1000 mL/hr), then none - for X1 (NOW) (04:59 07/09/2016 Celina Olivier) (Ack 5:13 DDavis R.N.) (5:27 TLewis R.N.) Morphine IV 4 mg (HIGH ALERT MEDICATION, NOW) (06:14 07/09/2016 Celina Olivier) (Ack 6:25 HSoule) (6:29 HSoule) ORDER SHEET NOTES: [Electronically signed by Greg Sharma R.N. (:07/09/2016)] [Electronically signed by Davian Mason Dr. (10:08 07/11/2016)] [Electronically locked/signed by Greg Sharma R.N. (:07/09/2016)]
--- NOTE | 2016-07-09 06:07 | ED NURSING NOTES ---
Clinical Report - Nurses [facility] [address] [place] [address] 07/09/2016 1:45 [id number] Triage time 01:50. Acuity: LEVEL 4. Chief Complaint: (neck pain and sore throat). Alert. SEPSIS SCREEN: Sepsis Screen: negative. Infection suspected/documented. LUIS MANUEL COMA SCORE: [place] Coma Scale: 15- eyes open spontaneously (4); best verbal response- oriented x 4 (5); best motor response- obeys commands (6). --01:57 Jerrod Alfredo R.N. 01:50 07/09/16. BP: 139/73. HR: 93. RR: 22 (regular and unlabored). O2 saturation: 99% on room air. Temp: 98 F (oral). Pain level now: 11/01. --01:57 Jerrod Alfredo R.N. Weight: 124.7 kg stated. Height/Length: 66 inches Per Patient. BMI: 44.4. --01:52 Jerrod Alfredo R.N. Medications Abilify Oral. BuPROPion HCl Oral. CeleXA Oral. Citalopram Hydrobromide Oral. LamoTRIgine Oral. [place] Oral. QUEtiapine Fumarate Oral. --01:51 Jerrod Alfredo R.N. Allergies No Known Drug Allergy. --01:51 Jerrod Alfredo R.N. History Arrived by private vehicle. Historian: patient. Unaccompanied. Onset. (2 - 3 days ago). ( Neck pain and sore throat since 2-3 day ago, seen yesterday for same.). 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 PAST MEDICAL HX: Last normal menstrual period- 6 days ago. SOCIAL HX: Never smoker. History of heavy drug use: marijuana. Recently used drugs yesterday. No alcohol use. ABUSE ASSESSMENT: Abuse assessment: The patient was asked "Do you feel safe in your home?". No report of abuse. SELF HARM ASSESSMENT: A self harm assessment was performed. FALL RISK ASSESSMENT: Fall risk assessment completed. No fall risk identified. NUTRITIONAL RISK ASSESSMENT: The nutritional risk assessment revealed no deficiencies. LEARNING NEEDS ASSESSMENT: The learning needs assessment revealed no barriers. SKIN INTEGRITY ASSESSMENT: Skin integrity risk assessment completed. No skin integrity risk identified. --01:57 Jerrod Alfredo R.N. PROBLEMS: Pharyngitis. Anxiety Reaction. Bipolar Disorder. Suicidal Ideation. Depression. --01:51 Jerrod Alfredo R.N. ADDITIONAL SURGERIES: Adenoidectomy. Tonsillectomy. Tympanostomy Tubes. --01:51 Jerrod Alfredo R.N. Interventions ID band on patient. To treatment room. --01:57 Jerrod Alfredo R.N. PHYSICAL ASSESSMENT ( neck pain increases with movement and position, throat pain increases with swallowing). GENERAL / NEURO / PSYCH: Alert. Oriented X 4. --01:58 Jerrod Alfredo R.N. RESPIRATORY: ( airway patent). --01:59 Jerrod Alfredo R.N. NURSING PROGRESS NOTES Head of bed elevated. Reassurance given. Two patient identifiers checked. Call light placed in reach. Side rails up x 1. Bed placed in lowest position. Brakes of bed on. Patient ready for evaluation- chart flagged. Patient waiting for evaluation. --01:58 Jerrod Alfredo R.N. 03:52 07/09/2016 Site #1 started via IV in the right antecubital space with an 20g angiocath, with aseptic technique and good blood return; one attempt. Blood drawn: rainbow set. Labeled in the presence of the patient and sent to the lab. Saline lock flushed with saline. --03:57 Jerrod Alfredo R.N. 04:16 07/09/2016 Morphine IVP 4 mg given over 1 minute(s) via site #1. Allergies verified, confirmed 5 rights and sedative warning given to the patient. IV patency established. IV site checked: no pain, redness, or swelling. IV flushed thoroughly pre- and post-medication administration. IVP given by RN. --04:16 Cadence Reyes 04:16 07/09/16. BP: 134/65. HR: 90. RR: 20. O2 saturation: 99% on room air. Pain level now: 11/01. --04:16 Eric Cadence Pulse oximeter and NIBP monitor placed on patient. --04:16 Cadence Reyes The patient is calm, resting quietly and sleeping. RESPIRATORY: No respiratory distress. SKIN: Skin is warm and dry. --05:15 Jerrod Alfredo R.N. 05:27 07/09/2016 Decadron IVP 20 mg given over 1 minute(s) via site #1. Allergies verified and confirmed 5 rights. IV patency established. IV site checked: no pain, redness, or swelling. IV flushed thoroughly pre- and post-medication administration. IVP given by RN. --05:27 Duc Rajput R.N. 05:27 07/09/2016 Started bag #1 1000 mL IV Fluids IV NS (Saline); at 1000 mL/hr over 1 hour(s) via site #1 via IV pump. Allergies verified and confirmed 5 rights. IV patency established. IV site checked: no pain, redness, or swelling. IV flushed thoroughly pre- and post-medication administration. --05:27 Duc Rajput R.N. <<STRICKEN ENTRY-- 05:37 07/09/2016 Started 3 gm of Unasyn (Ampicillin-Sulbactam Sodium) IVPB in bag #1 100 mL; at 50 mL/hr over 2 hour(s) via site #1 via IV pump. Allergies verified and confirmed 5 rights. IV patency established. IV site checked: no pain, redness, or swelling. IV flushed thoroughly pre- and post-medication administration. --05:42 Jerrod Alfredo R.N. --END STRIKE>> Correction. --05:43 Jerrod Alfredo R.N. 05:37 07/09/2016 Started 3 gm of Unasyn (Ampicillin-Sulbactam Sodium) IVPB in bag #1 250 mL; at 150 mL/hr over 2 hour(s) via site #1 via IV pump. Allergies verified and confirmed 5 rights. IV patency established. IV site checked: no pain, redness, or swelling. IV flushed thoroughly pre- and post-medication administration. --05:43 Jerrod Alfredo R.N. 06:29 07/09/2016 Morphine IVP 4 mg given over 1 minute(s) via site #1. Allergies verified, confirmed 5 rights and sedative warning given to the patient and patient's gas examiner. IV patency established. IV site checked: no pain, redness, or swelling. IV flushed thoroughly pre- and post-medication administration. IVP given by RN. --06:29 Cadence Reyes ( Patient clear to have PO food and fluids). --06:32 Cadence Reyes ( Report given to DORITA Garza). --07:08 Jerrod Alfredo R.N. ( spoke with mother of pt and went over POC to transfer to [facility].). --08:02 Greg Sharma R.N. DISPOSITION / DISCHARGE 06:30 07/09/2016 Unasyn IVPB Discontinued: bag #1 infused. Total amount infused: 100 mL. IV patency established. IV site checked: no pain, redness, or swelling. IV flushed thoroughly. --09:07 Greg Sharma R.N. 07:07 07/09/2016 IV Fluids IV NS Discontinued: bag #1 infused. Total amount infused: 1000 mL. IV patency established. IV site checked: no pain, redness, or swelling. IV flushed thoroughly. --09:07 Greg Sharma R.N. 08:56 07/09/2016 Site #[address] upon transfer; patent. Good blood return present. --09:06 Greg Sharma R.N. 08:56 07/09/2016 Started 3 gm of Unasyn (Ampicillin-Sulbactam Sodium) IVPB in bag #1 100 mL; at 300 mL/hr over 1 hour(s) via site #1 via dial-a-flow. Allergies verified and confirmed 5 rights. IV patency established. IV site checked: no pain, redness, or swelling. IV flushed thoroughly pre- and post-medication administration. --09:07 Greg Sharma R.N. 08:58 07/09/2016 Unasyn IVPB Continued: upon transfer at the rate of 300 mL/hr. 100 mL remaining bag #1. IV patency established. IV site checked: no pain, redness, or swelling. IV flushed thoroughly. --09:08 Greg Sharma R.N. Departure time: 09:05 Jul 09 2016. Transferred to [facility]. Summary of care provided to transport team and transfer facility via paper and fax. ( Report given and Antibiotic hung for transport.). --09:08 Greg Sharma R.N. 09:04 07/09/16. BP: 130/68. HR: 88. RR: 20. O2 saturation: 99%. Temp: 98.8 F. Pain level now 08/02. --09:08 Greg Sharma R.N. Locked/Released at 07/09/2016 19:17 by Greg Sharma R.N.
--- NOTE | 2016-07-09 10:00 | DIAGNOSTIC IMAGING REPORT ---
PROCEDURE: CT SOFT TISSUE NECK WITH CONT INDICATION: PAIN, PREVERTEBRAL SOFT TISSUE SWELLING ON PLAIN FILM TECHNIQUE: 100 ml of Isovue 300 injected intravenously and axial images were obtained from the skull base through the upper mediastinum with sagittal and coronal reformations. In addition, angled axial oblique images were obtained (avoiding dental hardware). COMPARISON: Soft tissue neck x-ray 07/08/2016. FINDINGS: 3 x 1.3 cm left peritonsillar heterogeneous mass causing distortion of the airway with a focal 1.5 x 1.1 cm low-density area consistent with an abscess. There is loss of retropharyngeal tissue planes with fluid density consistent with a retropharyngeal abscess from C1-C6. Markedly enlarged adenoids. Bilateral jugular adenopathy most prominent on the left (1.5 cm short axis). Normal epiglottis. The parotid, submandibular and thyroid glands are normal. Lung apices are clear. Visualized mastoids and sinuses are clear. IMPRESSION: 1. 3 x 1.3 cm left peritonsillar phlegmon with a 1.5 x 1.1 cm abscess. There is fluid density from C1-C6 consistent with a retropharyngeal abscess 2. Bilateral cervical adenopathy, left greater than right 3. Normal epiglottis 4. Preliminary results were by Dr. Maria, [facility] radiology. All CT scans at this facility use dose modulation, iterative reconstruction, and/or weight-based dosing when appropriate to reduce radiation dose to as low as reasonably achievable.
--- NOTE | 2016-07-11 10:08 | ED MED RECONCILIATION SUMMARY ---
Patient: KARL DEAL Medication Reconciliation Report [facility] VisitID: [id number] [address] [place] [address] 20y, F Registration Date/Time: 07/09/2016 Weight: 124.7 kg Height/Length: 66 in. BMI: 44.4 ALLERGIES: No Known Drug Allergy The patient's Home Medications are listed below: THE FOLLOWING MEDICATIONS NEED TO BE RECONCILED: Abilify Oral BuPROPion HCl Oral CeleXA Oral Citalopram Hydrobromide Oral LamoTRIgine Oral [place] Oral QUEtiapine Fumarate Oral The source(s) of the original Home Medication information: Not obtained. The following Medications were given to the patient in the Emergency Department: Morphine [IVP] IVP 4 mg, administered: 07/09/2016 4:16:00 AM Decadron [IVP] IVP 20 mg, administered: 07/09/2016 5:27:00 AM IV NS IV Fluids bolus 0, then 1000 mL/hr, administered: 07/09/2016 5:27:00 AM Unasyn [IVPB] IVPB bolus 0, then 3 gm 150 mL/hr, administered: 07/09/2016 5:37:00 AM Morphine [IVP] IVP 4 mg, administered: 07/09/2016 6:29:00 AM Unasyn [IVPB] IVPB bolus 0, then 3 gm 300 mL/hr, administered: 07/09/2016 8:56:00 AM The following Medications were prescribed to the patient: None.
--- NOTE | 2016-07-11 10:08 | ED DISCHARGE INSTRUCTIONS ---
Patient: KARL DEAL General Instructions [facility] VisitID: [id number] [address] [place] [address] 20y, F Registration Date/Time: 07/09/2016 retropharengyl abscess, acute acute left peritonsilar abscess leukocytosis, acute. (Electronically signed by Davian Mason Dr. 07/11/2016 10:08)
--- NOTE | 2016-07-11 10:08 | ED DISCHARGE INSTRUCTIONS ---
Patient: KARL DEAL General Instructions [facility] VisitID: [id number] [address] [place] [address] 20y, F Registration Date/Time: 07/09/2016 retropharengyl abscess, acute acute left peritonsilar abscess leukocytosis, acute. (Electronically signed by Davian Mason Dr. 07/11/2016 10:08)
--- NOTE | 2016-07-11 10:08 | ED MAR SUMMARY ---
..... Medication Administration Record [facility] [address] [address] Patient: KARL DEAL Visit ID: [id number] 20y, F Weight: 124.7 kg Height/Length: 66 in BMI: 44.4 ALLERGIES: No Known Drug Allergy Given 04:16 07/09/2016 Cadence Reyes, Medication Administered: MORPHINE [IVP], Dose: 4 mg IVP over 1 minute(s), Site: #1 right AC. Medication Ordered: Morphine IV 4 mg (HIGH ALERT MEDICATION, NOW). Given 05:27 07/09/2016 Duc Rajput R.N. Medication Administered: DECADRON [IVP], Dose: 20 mg IVP over 1 minute(s), Site: #1 right AC. Medication Ordered: Decadron IV 20 mg (NOW). Start 05:27 07/09/2016 Duc Rajput R.N., Stop 07:07 07/09/2016 Greg Sharma RSparkle Medication Administered: IV NS (SALINE), Dose: IV Fluids over 1 hour(s), Rate: 1000 mL/hr, Dispensed: 1000 mL bag, Site: #1 right AC. Medication Ordered: IV NS : initial bolus 1000 mL (1000 mL/hr), then none - for X1 (NOW). Start 05:37 07/09/2016 Jerrod Alfredo R.N., Stop 06:30 07/09/2016 Greg Sharma RSparkle Medication Administered: UNASYN [IVPB] (AMPICILLIN-SULBACTAM SODIUM), Dose: 3 gm IVPB over 2 hour(s), Rate: 150 mL/hr, Dispensed: 250 mL bag, Site: #1 right AC. Medication Ordered: Unasyn IV 3 gm/100mL (NOW). Given 06:29 07/09/2016 Cadence Reyes, Medication Administered: MORPHINE [IVP], Dose: 4 mg IVP over 1 minute(s), Site: #1 right AC. Medication Ordered: Morphine IV 4 mg (HIGH ALERT MEDICATION, NOW). Start 08:56 07/09/2016 Greg Sharma R.N., Continued Upon Transfer 08:58 07/09/2016 Greg Sharma RRonitN. Medication Administered: UNASYN [IVPB] (AMPICILLIN-SULBACTAM SODIUM), Dose: 3 gm IVPB over 1 hour(s), Rate: 300 mL/hr, Dispensed: 100 mL bag, Site: #1. Medication Ordered: Unasyn IV 3 gm/100mL (start just prior to transfer).
--- NOTE | 2016-07-11 10:08 | ED MAR SUMMARY ---
..... Medication Administration Record [facility] [address] [place] [address] Patient: KARL DEAL Visit ID: [id number] 20y, F Weight: 124.7 kg Height/Length: 66 in BMI: 44.4 ALLERGIES: No Known Drug Allergy Given 04:16 07/09/2016 Cadence Reyes, Medication Administered: MORPHINE [IVP], Dose: 4 mg IVP over 1 minute(s), Site: #1 right AC. Medication Ordered: Morphine IV 4 mg (HIGH ALERT MEDICATION, NOW). Given 05:27 07/09/2016 Duc Rajput R.N. Medication Administered: DECADRON [IVP], Dose: 20 mg IVP over 1 minute(s), Site: #1 right AC. Medication Ordered: Decadron IV 20 mg (NOW). Start 05:27 07/09/2016 Duc Rajput R.N., Stop 07:07 07/09/2016 Greg Sharma RSparkle Medication Administered: IV NS (SALINE), Dose: IV Fluids over 1 hour(s), Rate: 1000 mL/hr, Dispensed: 1000 mL bag, Site: #1 right AC. Medication Ordered: IV NS : initial bolus 1000 mL (1000 mL/hr), then none - for X1 (NOW). Start 05:37 07/09/2016 Jerrod Alfredo R.N., Stop 06:30 07/09/2016 Greg Sharma RSparkle Medication Administered: UNASYN [IVPB] (AMPICILLIN-SULBACTAM SODIUM), Dose: 3 gm IVPB over 2 hour(s), Rate: 150 mL/hr, Dispensed: 250 mL bag, Site: #1 right AC. Medication Ordered: Unasyn IV 3 gm/100mL (NOW). Given 06:29 07/09/2016 Cadence Reyes, Medication Administered: MORPHINE [IVP], Dose: 4 mg IVP over 1 minute(s), Site: #1 right AC. Medication Ordered: Morphine IV 4 mg (HIGH ALERT MEDICATION, NOW). Start 08:56 07/09/2016 Greg Sharma R.N., Continued Upon Transfer 08:58 07/09/2016 Greg Sharma RRonitN. Medication Administered: UNASYN [IVPB] (AMPICILLIN-SULBACTAM SODIUM), Dose: 3 gm IVPB over 1 hour(s), Rate: 300 mL/hr, Dispensed: 100 mL bag, Site: #1. Medication Ordered: Unasyn IV 3 gm/100mL (start just prior to transfer).
--- NOTE | 2016-07-11 10:08 | ED MED RECONCILIATION SUMMARY ---
Patient: KARL DEAL Medication Reconciliation Report [facility] VisitID: [id number] [address] [place] [address] 20y, F Registration Date/Time: 07/09/2016 Weight: 124.7 kg Height/Length: 66 in. BMI: 44.4 ALLERGIES: No Known Drug Allergy The patient's Home Medications are listed below: THE FOLLOWING MEDICATIONS NEED TO BE RECONCILED: Abilify Oral BuPROPion HCl Oral CeleXA Oral Citalopram Hydrobromide Oral LamoTRIgine Oral [place] Oral QUEtiapine Fumarate Oral The source(s) of the original Home Medication information: Not obtained. The following Medications were given to the patient in the Emergency Department: Morphine [IVP] IVP 4 mg, administered: 07/09/2016 4:16:00 AM Decadron [IVP] IVP 20 mg, administered: 07/09/2016 5:27:00 AM IV NS IV Fluids bolus 0, then 1000 mL/hr, administered: 07/09/2016 5:27:00 AM Unasyn [IVPB] IVPB bolus 0, then 3 gm 150 mL/hr, administered: 07/09/2016 5:37:00 AM Morphine [IVP] IVP 4 mg, administered: 07/09/2016 6:29:00 AM Unasyn [IVPB] IVPB bolus 0, then 3 gm 300 mL/hr, administered: 07/09/2016 8:56:00 AM The following Medications were prescribed to the patient: None.
== END 2016-07-09 09:50 | disposition home or self-care (01) ==
LOC: ED SRH 01:46
DX: J39.0 Retropharyngeal and parapharyngeal abscess (principal); J36 Peritonsillar abscess; D72.829 Elevated white blood cell count, unspecified; Z79.899 Other long term (current) drug therapy
CPT/HCPCS: 90100; 91585; 95059